=== PATIENT | female | born 1995 ===

== ENCOUNTER 2018-07-03 16:44 | Emergency (ER) | payer OTHER ==
--- NOTE | 2018-07-03 17:08 | UC ---
Hand/Wrist HPI - HPI Summary HPI Summary: 23 yo female presents with RIGHT wrist pain. She tells me that she joined the [employer] team at [place] and they had a practice 4 days ago. During this practice she caught a teammate and felt a strain in her right wrist. Wasn't too stiff or painful at the time, but since that time has become increasingly painful and now she is having difficulty flexing and extending due to pain and stiffness. Has been taking ibuprofen, but has not been RICEing. Denies numbness or tingling. - History Of Current Complaint Chief Complaint: UCUpperExtremity Stated Complaint: WRIST INJURY Time Seen by Provider: 07/03/18 17:08 Hx Obtained From: Patient Hx Last Menstrual Period: 06/04/18 Onset/Duration: Sudden Onset Severity Initially: Moderate Severity Currently: Moderate Pain Intensity: 7 Pain Scale Used: 0-10 Numeric - Allergies/Home Medications Allergies/Adverse Reactions: Allergies Allergy/AdvReac Type Severity Reaction Status Date / Time No Known Allergies Allergy Verified 07/03/18 16:56 Home Medications: Home Medications Budesonide/Formote 160/4.5(NF) [Symbicort 160/4.5 (NF)] 2 puff PO BID 07/03/18 [ History Confirmed 07/03/18] Montelukast Sodium TAB* [Singulair 10 MG TAB*] 10 mg PO BEDTIME 07/03/18 [ History Confirmed 07/03/18] Sertraline HCl [Zoloft] 25 mg PO DAILY 07/03/18 [History Confirmed 07/03/18] predniSONE [Prednisone 5 MG TAB] 10 mg PO DAILY 07/03/18 [History Confirmed ] PMH/Surg Hx/FS Hx/Imm Hx Respiratory History: Asthma - Surgical History Surgical History: None - Family History Known Family History: Positive: None - Social History Occupation: Student Lives: Dormitory/Roommates Alcohol Use: Occasionally Substance Use Type: None Smoking Status (MU): Never Smoked Tobacco Review of Systems Constitutional: Negative Skin: Negative Respiratory: Negative Cardiovascular: Negative Neurovascular: Negative Musculoskeletal: Other: - Right wrist pain Neurological: Negative Psychological: Negative All Other Systems Reviewed And Are Negative: Yes Physical Exam - Summary Physical Exam Summary: GENERAL: NAD. WDWN. No pain distress. SKIN: No rashes, sores, lesions, or open wounds. CHEST: No accessory muscle use. Breathing comfortably and in no distress. CV: Pulses intact radial and ulnar. Cap refill <2seconds MSK: RIGHT WRIST: Mild TTP over ulnar styloid and at flexor carpi ulnaris. Pain with active flexion and extension at flexor carpi ulnaris. FROM. Strength 5/5 including band master strength. No edema or obvious bony deformities. No snuffbox tenderness. NEURO: Alert. Sensations intact hand and all fingers. PSYCH: Age appropriate behavior. Triage Information Reviewed: Yes Vital Signs: Initial Vital Signs Temp 98.5 F 07/03/18 17:00 Pulse 79 07/03/18 17:00 Resp 16 07/03/18 17:00 BP 110/67 07/03/18 17:00 Pulse Ox 100 07/03/18 17:00 Vital Signs Reviewed: Yes Hand/Wrist Course/Dx - Course Course Of Treatment: XR: IMPRESSION: NO FRACTURE OF THE WRIST IS NOTED. Suspect wrist sprain/strain. Advised pt to be out of sports and RICE and take ibuprofen. A cock-up splint was provided for pain reduction and added comfort. F /u with sports medicine if symptoms persist. - Differential Dx/Diagnosis Provider Diagnoses: Right wrist strain Discharge - Sign-Out/Discharge Documenting (check all that apply): Patient Departure All imaging exams completed and their final reports reviewed: Yes - Discharge Plan Condition: Stable Disposition: HOME Patient Education Materials: Wrist Sprain (ED) Referrals: No Primary Care Phys,NOPCP [Primary Care Provider] - Sports Medicine [facility] [Provider Group] - If Needed Additional Instructions: If you develop a fever, shortness of breath, chest pain, new or worsening symptoms - please call your PCP or go to the ED. 1) Rest, Ice, and elevate your wrist as much as possible 2) Use the wrist brace for added support and pain reduction 3) If your symptoms worsen or persist - please call Sports Medicine at the number below to schedule a follow up appointment - Billing Disposition and Condition Condition: STABLE Disposition: Home
--- NOTE | 2018-07-03 17:36 | RAD ---
Indication: Right wrist injury. 3 views of the wrist demonstrates no fracture. No other bone or joint abnormality is identified. IMPRESSION: NO FRACTURE OF THE WRIST IS NOTED.
== END 2018-07-03 18:03 | disposition home or self-care (01) ==
LOC: UCEAST 16:44
DX: S66.911A Strain of unspecified muscle, fascia and tendon at wrist and hand level, right hand, initial encounter (principal); X50.0XXA Overexertion from strenuous movement or load, initial encounter; Y93.45 Activity, cheerleading; Y92.9 Unspecified place or not applicable
CPT/HCPCS: 99202; G0463